=== PATIENT | male | born 2000 | race Caucasian/White ===

== ENCOUNTER 2020-01-20 17:36 | Outpatient (REF) | payer MEDICAID, SELFPAY | END 2020-01-20 17:37 | disposition home or self-care (01) | LOC: HO.LAB 17:36 | PROVIDERS: Visit Provider Internal Medicine | DX: Z20.828 Contact with and (suspected) exposure to other viral communicable diseases (principal) | CPT/HCPCS: U0003 ==

== ENCOUNTER 2022-04-08 18:27 | Emergency (ER) | payer MEDICAID, SELFPAY ==
--- NOTE | 2022-04-08 18:43 | ED.URI ---
HPI - URI/Sore Throat General Chief Complaint: General Medical Stated Complaint: covid testing Time Seen by Provider: 04/08/22 18:44 Source: patient Mode of arrival: ambulatory Limitations: no limitations History of Present Illness HPI Narrative: Patient is a 22-year-old male presents emergency department for evaluation of upper respiratory symptoms. He states a couple of hours ago he began feeling unwell. States that he Took an at home COVID-19 test which was positive. States his work is requiring testing from doctor regarding positive status. Complaining of fatigue, cough, congestion. States vaccinated for COVID-19 x2. Related Data Allergies Allergy/AdvReac Type Severity Reaction Status Date / Time No Known Allergies Allergy Verified 04/08/22 18:44 [No Known Allergies*] Review of Systems Review of Systems: Constitutional: No fever. No chills. No weakness. Positive fatigue. ENT/ Mouth: No Ear Pain, positive Nasal Congestion, positive sore throat, No Rhinorrhea, No Swallowing Difficulty Skin: No rash or itching. Cardiovascular: No chest pain. No palpitations. Respiratory: No shortness of breath. Positive cough. No sputum production. Gastrointestinal: No nausea. No vomiting. No diarrhea. No abdominal pain. Genitourinary: No burning micturition. No urinary frequency. Neurologic: No headache. No dizziness. No syncope. No numbness or tingling in the extremities. Musculoskeletal: No muscle pain. No back pain. No joint pain or stiffness. Yes all other systems are reviewed and are negative PMFSH Past Medical History Attestation statement: The following information was validated with the patient. Source: old records reviewed Social History Social History Advance Directives: No Advance Directives Information Provided: No Physical Exam Vital Signs: Vital Signs: Last Vital Signs Temp 98.5 F 04/08/22 18:44 Pulse 89 04/08/22 18:44 Resp 16 04/08/22 18:44 BP 152/98 H 04/08/22 18:44 Pulse Ox 96 04/08/22 18:44 O2 Del Method 04/08/22 18:44 BMI result Body Mass Index 33.9 Appearance: Alert.?Oriented to person, place and time. No acute distress.?Normal affect. Eyes: Pupils equal, round and reactive to light.? ENT: TM normal bilaterally. Pharynx normal.?? Neck: Normal inspection.? Neck supple.??No cervical adenopathy CVS: Heart sounds normal. Normal heart rate and rhythm.? Pulses normal.?? Respiratory: No respiratory distress.? Lung sounds clear to auscultation bilaterally?? Abdomen: Soft and non-tender. Normoactive bowel sounds. Skin: Skin warm and dry.? Normal skin color.? ? Extremities: No lower extremity edema.? Neuro: Moves all extremities spontaneously. Sensation intact bilaterally. No motor deficits. Ambulates with normal steady gait. Medical Decision Making Medical Decision Making [facility] Narrative: Patient is a 22-year-old male with no reported past medical history, presenting for evaluation of upper respiratory symptoms. COVID-19 testing is positive. Discussed Paxlovid, EUA, indications for use, and potential side effects, patient declines. Provided with a return to work note. At this time history and physical exam not consistent with ACS/PE/pneumonia. Well-appearing, nontoxic, afebrile, no tachycardia or tachypnea/hypoxia. Speaking clear full sentences, ambulatory with steady gait. Discussed conservative treatment including rest, hydration, Tylenol/ibuprofen as needed for fever and body aches, saline nasal spray, humidifier, [id number] cold medication. Advised to follow-up with primary care provider as needed, discussed reasons to return back to the emergency department. All questions were answered. Patient discharged home in stable condition. Provided with a return to work note. Differential Diagnosis Differential Diagnoses: The differential diagnosis associated with the presentation includes (As noted above) Lab Data [facility] Lab Attestation statement: I reviewed the patient's lab results. Labs: Lab Results 04/08/22 Range/Units 19:46 COVID-19 (DEBORAH) Positive A (Negative) COVID-19 Clin Com See Note Prescription Management I considered prescription management with: Antiviral (As noted above) Discharge Plan Discharge Clinical Impression: COVID-19 Patient Disposition: Home, Self-Care Instructions: COVID-19 (Coronavirus Disease 2019) (ED) Additional Instructions: Your COVID-19 test was positive today. Please be sure to rest, drink plenty of fluids. You can take ibuprofen 200 mg, 3 tablets (600mg) every 6-8 hours as needed for pain, in addition to Tylenol 500 mg, 2 tablets (1,000mg) every 4-6 hours as needed for pain, but not to exceed 3 doses daily (3,000mg).? According to the CDC you can end isolation and return to work or school on 04/14/2022, with strict mask wearing for an additional 5 days; ??Given you meet the following ?- at least 24 hours without fever without the use of fever-reducing medications (tylenol or ibuprofen) ?- improvement in symptoms ?- at least 5 days have passed since symptoms first appeared ? Stand Alone Forms: Work/School Release
[2022-04-08 18:44] VITALS: BP 152/98; PULSE 89; RESP 16; TEMP 36.9; O2SAT 96; BMI 33.9
[2022-04-08 20:01] LABS: COVID-19 Test Positive (Negative); IDNOW Serial# 6674DD1D
[2022-04-08 20:20] VITALS: BP 145/72; PULSE 85; RESP 18; TEMP 36.9; O2SAT 97
== END 2022-04-08 20:20 | disposition home or self-care (01) ==
PROVIDERS: Nurse Practitioner Family; Emergency Provider Internal Medicine
DX: U07.1 COVID-19 (principal)
CPT/HCPCS: 87635; 99283

== ENCOUNTER 2025-02-01 07:52 | Emergency (ER) | payer OTHER, SELFPAY ==
--- OUTSIDE RECORDS SUMMARY | 2016-02-15 07:45 | XMS_ITS | Continuity of Care Document ---
Author Organization Eddie Shannon [facility] Address [address] [facility] [facility] [address] [place] [address] Phone Care Team Providers Care Director Corporate Security Name Role Phone Nayeli Steward RDH Unavailable [...] VISIT, EST, AGE 12-17 OFFICE/OUTPATIENT VISIT, EST [place]-Porcelain/Ceramic Substrate PFM TEMPORARY CROWN Prefabricated Post And Core In Addition To [place] PFM/PREP AND FINAL IMP PORCELAIN FUSED TO BASE/IMP Anterior (Excluding Final Faith) J RCT IN PROCESS Periodic Oral Evaluation-Established Pat ient Bitewings-Four Films Prophylaxis-Adult Oral Hygiene Instructions Intraoral-Periapical First Film 014 Topical Application Of Fluoride 014 Periodic Oral Evaluation-Established Pat ient Bitewings-Four Films Prophylaxis-Adult Oral Hygiene Instructions Topical Application Of Fluoride 014 Psychotherapy 45 Min (38-52 Min) 2012 Interactive Complexity Psychotherapy 45 Min (38-52 Min) 2012 Interactive Complexity OCULAR CARE AIDE Psychotherapy 45 Min (38-52 Min) 2012 OCULAR CARE AIDE OCULAR CARE AIDE RCT IN PROCESS Psychotherapy 45 Min (38-52 Min) 2012 Dental Kept Appt No Charge OCULAR CARE AIDE Dental Kept Appt No Charge DEVELOPMENTAL TEST, ROPER Advance Directives Directive Yes / No Effective Date File Name No Information Encounters Encounter Description Practice Location Reason(s) For Visit Diagnoses Date Provider Providers Copied on Encounter Eddie Chu [facility], [address] [facility], [place], [place], [id number], [place] tel:[phone] [facility] Encounter for dental exam and cleaning w/o abnormal findings 6 Aldindiachristineomari Tyler. [address] [place], [place], [id number]. tel:[phone] OFFICE/OUTPATI ENT VISIT, EST [facility], [address] [facility] [address], [place], [place], [id number], [place] tel:[phone] [facility] ankle pain (chief complaint) Sprain of left ankle, unspecified ligament, initial encounter 0- 6 No Information [facility], [address] [facility],[address], [place], [place], [id number], [place] tel:[phone] [facility] Encounter for dental exam and cleaning w/o abnormal findings 5 Sarahstewart Bull. [address] [place], [place], [id number]. tel:[phone] [facility], [address] [facility],[address], [place], [place], [id number], [place] tel:[phone] [facility] DENTAL EXAMINATION 5 Nichelle Tyler. [address] [place] [address], [id number]. tel:[phone] PREV VISIT, EST, AGE 12-17 [facility], [address] [facility] [address], [place], [place], [address], [place] tel:[phone] [facility] Well Child (chief complaint) acne (chief complaint) Well child checkAcne Aug- 5 No Information [facility], [address] [facility] [address], [place], [place], [id number], [place] tel:[phone] [facility] Dental examination Jun- 5 Sarah Jorgito. [address] [place], [place], [id number]. tel:[phone] [facility], [address] [facility],[address], [place], [place], [address], [place] tel:[phone] [facility] Dental examination Mar-0 6 5 Sarah Bull. [address] [place] [address], [id number]. tel:[phone] [facility], [address] [facility] [address], [place], [place], [address], [place] tel:[phone] [facility] Dental examination Feb-0 8 4 Sarahstewart Bull. [address] [place] [address], [id number]. tel:[phone] [facility], [address] [facility] [address], [place], [id number], [place] tel:[phone] [facility] Dental examination 2 4 Nichelle Tyler. [address] [place] [address], [id number]. tel:[phone] [facility], [address] [facility] [address], [place], [place], [address], [place] tel:[phone] [facility] Dental examination 0 4 Nichelle Tyler. [address] [place] [address], [id number]. tel:[phone] Psychotherapy 45 Min (38-52 Min) [facility], [address] [facility] [address], [place], [place], [address], [place] tel:[phone] [facility] No Information 3 No Information Psychotherapy 45 Min (38-52 Min) [facility], [address] [facility], [place], [place], [id number], [place] tel:[phone] [facility] No Information 0 3 No Information [facility], [address] [facility], [place], [place], [address], [place] tel:[phone] [facility] 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 . Psychotherapy 45 Min (38-52 Min) [facility], [address] [facility] [address], [place], [place], [address], [place] tel:[phone] [facility] No Information 3 No Information [facility], [address] 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 . [facility], [address] [facility] [address], [place], [place], [address], [place] tel:[phone] [facility] Dental examination 3 Nadimpalli Parvathi. [address] [place], [place], [id number], [place]. tel:[phone] Psychotherapy 45 Min (38-52 Min) [facility], [address] [facility] [address], [place], [place], [address], [place] tel:[phone] [facility] Oppositional defiant disorderUnsp ecified episodic mood disorder 3 No Information [facility], [address] [facility] [address], [place], [place], [id number], [place] tel:[phone] [facility] No Information 2 Nadimpalli Parvathi. [address] [place], [place], [id number], [place]. tel:[phone] [facility], [address] [facility] [address], [place], [place], [address], [place] tel:[phone] [facility] No Information 2 Fire Engine Pump Operator. . [facility], [address] [facility] [address], [place], [place], [address], [place] tel:[phone] [facility] No Information 2 Nichelle Tyler. [address] [facility], [place], [place], [id number]. tel:[phone] sigrid [facility], [address] [facility] [address], [place], [place], [address], [place] tel:[phone] [facility] Eating disorder, unspecifiedA djustment disorder with anxiety 2 No Information [facility], [address] [facility] [address], [place], [place], [id number], [place] tel:[phone] [facility] Counseling for parent-child problem, unspecified 1 No Information sigrid [facility], [address] [facility] [address], [place], [place], [address], [place] tel:[phone] [facility] Unspecified adjustment reaction 1 No Information sigrid [facility], [address] [facility] [address], [place], [place], [address], [place] tel:[phone] [facility] Generalized anxiety disorderRout ine infant or child health check 1 No Information [facility], [address] [facility] [address], [place], [place], [address], [place] tel:[phone] [facility] No Information 1 No Information Family History Family Member Type Diagnosis Age At Onset No Information Immunizations Vaccine Date Status Comments HPV 9 administered Source: [facility] unization Record Varicella administered Note: Fredis [...] e: [facility] ; Source: Other Registry [id number] administered Note: [facility] ; Source: Other Registry [id number] administered Note: [facility] ; Source: Other Registry [id number] administered Note: [facility] ; Source: Other Provider Hep B (ped/adol, 3 dose) administered Not e: [facility] ; Source: Other Registry Hep B (ped/adol, 3 dose) administered Not e: [facility] ; Source: Other Provider Payers Payer name Insurance type Covered constitution party ID Nino brock(s) [facility] [id number] Social History Type Description Quantity Date Captured [...] application . Due on due Goal HPV (2nd). Due on 5 due Goal HPV (1st) due Goal HPV (3rd). Due on 5 due Goal Tobacco Usage/Advice to Quit . Due on due Goal Flouride Varnish. Due on Jan due Goal Hematocrit. Due on 16 due [...]
[2025-02-01 07:55] VITALS: BP 166/98; PULSE 88; RESP 16; TEMP 36.2; O2SAT 98; BMI 30.5
[2025-02-01] MEDS: Fluorescein Sodium STRIP 1 STRIP EYE-BOTH (08:56)
--- NOTE | 2025-02-01 08:56 | ED.EYEPROB ---
HPI - Eye Problem General Chief complaint: Eye Problems Stated complaint: Eye Issues Irritation Time Seen by Provider: 02/01/25 08:46 Source: patient Mode of arrival: ambulatory Limitations: no limitations History of Present Illness ED Provider: HPI Narrative: 25-year-old presenting with right eye irritation he woke up with this, no trauma, feels like there is something in his eye, no fevers or chills slight blurry vision Related Data Allergies Allergy/AdvReac Type Severity Reaction Status Date / Time No Known Allergies (No Known Allergy Verified 02/01/25 07:57 Allergies*) Review of Systems Constitutional: Constitutional: Reports as per [facility] Social History Social History Advance Directives: No Advance Directives Information Provided: Yes Do you have a plan to hurt others: No Plan Physical Exam Exam: Exam: Ophthalmoscopic exam with pupils 3 mm reactive, normal vasculature that was visible Fluorescein stain Wood's lamp did not reveal any dendrites, foreign bodies, Car sign is negative, no abrasions No periorbital edema noted Vital Signs: Vital Signs: Last Vital Signs Temp 97.2 F 02/01/25 07:55 Pulse 88 02/01/25 07:55 Resp 16 02/01/25 07:55 BP 166/98 H 02/01/25 07:55 Pulse Ox 98 02/01/25 07:55 O2 Del Method Room Air 02/01/25 07:55 BMI result Body Mass Index 30.5 Medications Administered Discontinued Medications Generic Name Dose Route Start Last Admin Trade Name Freq PRN Reason Stop Dose Admin Fluorescein Sodium 1 strip 02/01/25 08:47 02/01/25 08:56 Fluorescein Sodium Strip EYE-BOTH 02/01/25 08:48 1 strip ONCE ONE Administration Medical Decision Making Medical Decision Making [facility] Narrative: 9:34 AM 02/01/2025 (Dr. Joseluis Burr): Physical examination fluorescein exam ophthalmoscopic examination without any foreign bodies, flare cells to suspect uveitis anteriorly, no evidence of corneal abrasions, no trauma no swelling around the eye to suspect preseptal or septal cellulitis Differential Diagnosis Differential Diagnoses: The differential diagnosis associated with the presentation includes (See above) Discharge Plan Discharge Clinical Impression: Eye irritation Patient Disposition: Home, Self-Care Instructions: Eye Pain (ED) Additional Instructions: Eye examination without any foreign bodies, without cuts to the cornea, the eye appeared to me irritated from the picture showed me, you can use ketotifen no more than 3 times a day to help with the irritation, do not rub the eye, discharge of pus from the eye, swelling around the eye that is getting worse, any worsening symptoms come back to the ER, you can try ibuprofen 400 mg if you have discomfort in the eye but please make sure do not rub the eye Print Language: Upper Sorbian
[2025-02-01 09:39] VITALS: BP 166/98; PULSE 88; RESP 16; TEMP 36.2; O2SAT 98
[2025-02-01] MEDS: Ketotifen Fumarate 0.025% Oph 5 ML DRPBTL 1 DROP EYE-BOTH (10:47)
== END 2025-02-01 10:47 | disposition home or self-care (01) ==
PROVIDERS: Emergency Provider Emergency Medicine; PCP Internal Medicine Endocrinology, Diabetes & Metabolism
DX: H57.9 Unspecified disorder of eye and adnexa (principal)
CPT/HCPCS: 99283; 99284

== ENCOUNTER 2025-03-12 01:36 | Emergency (ER) | payer OTHER, SELFPAY ==
--- OUTSIDE RECORDS SUMMARY | 2016-02-15 07:45 | XMS_ITS | Continuity of Care Document ---
Author Organization Eddie Shannon [facility] Address [address] [place] [address] Phone Care Team Providers Care Insurance Service Representative Name Role Phone Nayeli Steward RDH Unavailable Unavailab le Allergies, Adverse Reactions, Alerts Substance Reaction Status Criticality No Known Allergies Active No Inform ation Medications Medication Instructions Dosage Effective Dates (start - stop) Status Comments ibuprofen 600 mg tablet take 1 tablet by oral route 3 times every day with food 600 MG - Active benzoyl peroxide 5 % topical cleanser wash by topical route 2 times every day the affected area(s) - Active tretinoin 0.025 % topical cream apply by topical route every day to the affected area(s) - Active penicillin V potassium 250 mg/5 mL Oral Solution take 5 milliliter (250MG) by oral route every 8 hours 250 MG - Active Procedures Procedure Date Periodic Oral Evaluation-Established Pat ient Bitewings-Four Films Prophylaxis-Adult Oral Hygiene Instructions Topical Application Of Fluoride 016 Treatment Plan Complete Caries Low Risk 1st Molar Cannot Be Sealed OFFICE/OUTPATIENT VISIT, EST Resin-Based Composite-One Surface, Poste rior Treatment Plan Complete Periodic Oral Evaluation-Established Pat ient Prophylaxis-Adult Oral Hygiene Instructions Topical Application Of Fluoride 015 IMMUNIZATION ADMIN HPV Vaccine Type 6,11,16,18,31,33,45,52, 58 PREV VISIT, EST, AGE 12-17 OFFICE/OUTPATIENT VISIT, EST [place]-Porcelain/Ceramic Substrate PFM TEMPORARY CROWN Prefabricated Post And Core In Addition To [place] PFM/PREP AND FINAL IMP PORCELAIN FUSED TO BASE/IMP Anterior (Excluding Final Yazidism) J RCT IN PROCESS Periodic Oral Evaluation-Established Pat ient Bitewings-Four Films Prophylaxis-Adult Oral Hygiene Instructions Intraoral-Periapical First Film 014 Topical Application Of Fluoride 014 Periodic Oral Evaluation-Established Pat ient Bitewings-Four Films Prophylaxis-Adult Oral Hygiene Instructions Topical Application Of Fluoride 014 Psychotherapy 45 Min (38-52 Min) 2012 Interactive Complexity Psychotherapy 45 Min (38-52 Min) 2012 Interactive Complexity CARD PUNCHER Psychotherapy 45 Min (38-52 Min) 2012 CARD PUNCHER CARD PUNCHER RCT IN PROCESS Psychotherapy 45 Min (38-52 Min) 2012 Dental Kept Appt No Charge CARD PUNCHER Dental Kept Appt No Charge DEVELOPMENTAL TEST, ROPER Advance Directives Directive Yes / No Effective Date File Name No Information Encounters Encounter Description Practice Location Reason(s) For Visit Diagnoses Date Provider Providers Copied on Encounter Eddie Chu [facility], [address] [facility], [place], [place], [id number], [place] tel:[phone] [facility] Encounter for dental exam and cleaning w/o abnormal findings 6 Aldindiachristineomari Tyler. [address] [place], [place], [id number]. tel:[phone] OFFICE/OUTPATI ENT VISIT, EST [facility], [address] [facility] [address], [place], [place], [id number], [place] tel:[phone] [facility] ankle pain (chief complaint) Sprain of left ankle, unspecified ligament, initial encounter 0- 6 No Information [facility], [address] [facility],[address], [place], [place], [id number], [place] tel:[phone] [facility] Encounter for dental exam and cleaning w/o abnormal findings 5 Sarahstewart Bull. [address] [place], [place], [id number]. tel:[phone] [facility], [address] [facility],[address], [place], [place], [id number], [place] tel:[phone] [facility] DENTAL EXAMINATION 5 Nichelle Tyler. [address] [place] [address], [id number]. tel:[phone] PREV VISIT, EST, AGE 12-17 [facility], [address] [facility] [address], [place], [place], [id number], [place] tel:[phone] [facility] Well Child (chief complaint) acne (chief complaint) Well child checkAcne Aug- 5 No Information [facility], [address] [facility] [address], [place], [place], [id number], [place] tel:[phone] [facility] Dental examination Jun- 5 Sarah Jorgito. [address] [place], [place], [id number]. tel:[phone] [facility], [address] [facility] [address], [place], [place], [id number], [place] tel:[phone] [facility] Dental examination Mar-0 6 5 Sarah Bull. [address] [place] [address], [id number]. tel:[phone] [facility], [address] [facility] [address], [place], [place], [id number], [place] tel:[phone] [facility] Dental examination Feb-0 8 4 Sarahstewart Bull. [address] [place] [address], [id number]. tel:[phone] [facility], [address] [facility] [address], [place], [id number], [place] tel:[phone] [facility] Dental examination 2 4 Nichelle Tyler. [address] [place] [address], [id number]. tel:[phone] [facility], [address] [facility] [address], [place], [place], [id number], [place] tel:[phone] [facility] Dental examination 0 4 Nichelle Tyler. [address] [place] [address], [id number]. tel:[phone] Psychotherapy 45 Min (38-52 Min) [facility], [address] [facility] [address], [place], [place], [id number], [place] tel:[phone] [facility] No Information 3 No Information Psychotherapy 45 Min (38-52 Min) [facility], [address] [facility], [place], [place], [id number], [place] tel:[phone] [facility] No Information 0 3 No Information [facility], [address] [facility],[address], [place], [place], [id number], [place] tel:[phone] [facility] No Information 3 [employer]. . Psychotherapy 45 Min (38-52 Min) [facility], [address] [facility] [address], [place], [place], [address], [place] tel:[phone] [facility] No Information 3 No Information [facility], [address] [facility] [facility] [address], [place], [place], [id number], [place] tel:[phone] [facility] No Information 3 [employer]. . [facility], [address] [facility] [facility] [address], [place], [place], [id number], [place] tel:[phone] [facility] Dental examination 3 Nadimpalli Parvathi. [address] [place], [place], [id number], [place]. tel:[phone] Psychotherapy 45 Min (38-52 Min) [facility], [address] [facility] [address], [place], [place], [address], [place] tel:[phone] [facility] Oppositional defiant disorderUnsp ecified episodic mood disorder 3 No Information [facility], [address] [facility] [address], [place], [place], [id number], [place] tel:[phone] [facility] No Information 2 Nadimpalli Parvathi. [address] [place], [place], [id number], [place]. tel:[phone] [facility], [address] [facility] [address], [place], [place], [id number], [place] tel:[phone] [facility] [employer] [employer] No Information 2 [employer]. . [facility], [address] [facility] [facility] [address], [place], [place], [id number], [place] tel:[phone] [facility] No Information 2 Nichelle Tyler. [address] [facility], [place], [place], [id number]. tel:[phone] sigrid [facility], [address] [facility] [address], [place], [place], [id number], [place] tel:[phone] [facility] Eating disorder, unspecifiedA djustment disorder with anxiety 2 No Information [facility], [address] [facility] [address], [place], [place], [id number], [place] tel:[phone] [facility] Counseling for parent-child problem, unspecified 1 No Information sigrid [facility], [address] [facility] [address], [place], [place], [id number], [place] tel:[phone] [facility] Unspecified adjustment reaction 1 No Information sigrid [facility], [address] [facility] [address], [place], [place], [id number], [place] tel:[phone] [facility] Generalized anxiety disorderRout ine infant or child health check 1 No Information [facility], [address] [facility] [address], [place], [place], [address], [place] tel:[phone] [facility] No Information 1 No Information Family History Family Member Type Diagnosis Age At Onset No Information Immunizations Vaccine Date Status Comments HPV 9 administered Source: [facility] unization Record Varicella administered Note: [facility] ; Source: Other Registry Tdap administered Note: [facility] ; Source: Other Registry Meningococcal MCV4O administered Note: [facility] ; Source: Other Registry DTaP administered Note: [facility] ; Source: Other Provider Polio, Inactive administered Note: [facility] ; Source: Other Registry MMR administered Note: [facility] ; Source: Other Registry DTaP administered Note: [facility] ; Source: Other Registry Varicella administered Note: [facility] ; Source: Other Registry MMR administered Note: [facility] ; Source: Other Registry Hep B (ped/adol, 3 dose) administered Not e: [facility] ; Source: Other Registry [id number] administered Note: [facility] ; Source: Other Registry [id number] administered Note: [facility] ; Source: Other Registry [id number] administered Note: [facility] ; Source: Other Provider Hep B (ped/adol, 3 dose) administered Not e: [facility] ; Source: Other Registry Hep B (ped/adol, 3 dose) administered Not e: [facility] ; Source: Other Provider Payers Payer name Insurance type Covered libertarian ID Nino brock(s) [facility] [id number] Social History Type Description Quantity Date Captured Comments Sex Male Smoking Status No Information Chief Complaint And Reason For Visit No Information Reason For Referral Reason For Referral No Information Plan Of Treatment Date Type Action Status Goal Unhealthy drug use screening . Due on due Goal Document SOGI Information. D ue on due Goal Fluoride varnish application . Due on due Goal Influenza vaccine. Due on due Goal APE. Due on due Goal HPV (1st) due Goal HPV (3rd). Due on due Goal HPV (2nd). Due on due Goal Diabetes Screening. Due on N due Goal Tdap. Due on due Goal Fluoride varnish application . Due on due Goal HPV (1st) due Goal HPV (2nd). Due on due Goal HPV (3rd). Due on 5 due Goal Flouride Varnish. Due on Jan due Goal Tobacco Usage/Advice to Quit . Due on due Goal Hematocrit. Due on 16 due Goal Hearing screen (10-21 yr). D ue on due Goal APE. Due on due Goal Influenza vaccine. Due on due Goal Tdap. Due on due History Of Present Illness Encounter Date Complaint History Of Prese nt Illness ankle pain Onset: 1 week ag o. It occurs constantly and is fluctuating. Location: ankle. There is no radiation. The pain is aching. Context: twisted ankle while running. The pain is aggravated by movement, walking and standing. The pain is relieved by rest. Associated symptoms include joint tenderness. Pertinent negatives include crepitus, decreased mobility, difficulty initiating sleep, joint instability, limping, locking, nocturnal pain, numbness, popping and tingling in the legs. Well Child Pt states last p ediatric visit was with [facility]. [facility] about 6 yrs ago. Denies any significant hx. acne The problem is m ild. Area(s) affected include the face. Additional information: Pt asks about facial creams for acne. Hasn't tried anything previously. Functional Status Date Functional Assessmen t No Information Instructions Date Instruction Additional Infor mation No Information Assessments Type Assessment Date No Information Patient Care Teams Name Effective Dates (start - stop) Status Members No Information
--- NOTE | 2025-03-12 | ECG_ITS ---
Test Reason : PALPATATIONS Blood Pressure : */* mmHG Vent. Rate : 98 BPM Atrial Rate : 98 BPM P-R Int : 146 ms QRS Dur : 80 ms QT Int : 326 ms P-R-T Axes : 41 7 24 degrees QTcB Int : 416 ms Normal sinus rhythm Minimal voltage criteria for LVH, may be normal variant ( R in aVL ) Borderline ECG When compared with ECG of 31-Oct-2015 03:12, Vent. rate has increased by 44 bpm Referred By: Generic ED Physician Electronically Signed By: CLEMENT VALLES MD
[2025-03-12 01:39] VITALS: BP 173/99; PULSE 100; RESP 15; TEMP 36.8; O2SAT 100; BMI 31.2
[2025-03-12 02:34] VITALS: BP 167/98; PULSE 98; RESP 18; O2SAT 99
--- OUTSIDE RECORDS SUMMARY | 2025-03-12 02:46 | XMS_ITS | Continuity of Care Document ---
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 ETOH Use Denies alcohol use Tobacco Use Start: Unknown Patient has neve r smoked Recreational Drug Use Denies Drug Use Smoking Status Reviewed: 09/15/24 Patient has n ever smoked Exercise Type/Frequency Exercises regular ly Gym 3-4 x weekly, weight lifting, cardio Allergies and adverse reactions Description No Known Drug Allergies Medications Description No Active Medications Vital Signs Date Vital Result Comment 09/15/2024 2:31pm BP Systolic 138 mmHg BP Diastolic 88 mmHg Heart Rate 100 /min Height 67 inches 5'7 Weight 191.00 lb BMI (Body Mass Index) 29.9 kg/m2 Procedures Date Code Description Status 12/22/2024 NSHOWOFF No Show Office Visit Complet ed Medical Devices Description No Information Available Encounters Type Date Location Provider Dx Diagnosis Office Visit 09/15/2024 2:45p Main Office Katie Key CNP R03.0 Elevated blood-pressure reading, w/o diagnosis of htn 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 Z68.29 Body mass index [BMI ] 29.0-29.9, adult Z59.71 Insufficient health insurance coverage Assessments Date Code Description Provider 09/15/2024 R03.0 Elevated blood-p ressure reading, without diagnosis of hypertension Katie Key CNP 09/15/2024 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
[2025-03-12 03:46] LABS: Resp Syncy Virus RNA Qual PCR NEGATIVE (Negative); SARS COV2 PCR INHOUSE NEGATIVE (Negative)
--- NOTE | 2025-03-12 04:34 | ED.GENADULT ---
HPI - General Adult General Chief complaint: General Medical Stated complaint: not feeling well Time Seen by Provider: 03/12/25 02:35 Source: patient Limitations: no limitations History of Present Illness ED Provider: Cristina Ford PA-C HPI narrative: 25-year-old male presents with dizziness and palpitations since early evening. Patient states he took 100 mg of Viagra prior to the onset of his symptoms. Patient also states he has been having some viral symptoms over the past 2-3 days. Associated nasal congestion, sore throat dry cough. No known fever. Related Data Allergies Allergy/AdvReac Type Severity Reaction Status Date / Time No Known Allergies (No Known Allergy Verified 03/12/25 01:42 Allergies*) Review of Systems Review of Systems: Yes all other systems are reviewed and are negative Constitutional: Constitutional: Denies fatigue, Denies fever(s) and Denies headache(s) ENT: Reports dizziness, Denies headache(s) and Reports sore throat Cardiovascular: Cardiovascular: Denies chest pain, Reports palpitations and Denies dyspnea Respiratory: Respiratory: Reports cough, Denies dyspnea and Denies wheezing Gastrointestinal: Gastrointestinal: Denies nausea and Denies vomiting Musculoskeletal: Musculoskeletal: Denies myalgias Neurologic: Reports dizziness and Denies headache(s) Endocrine: Endocrine: Denies fatigue and Reports palpitations Allergic/Immunologic: Allergic/Immunologic: Denies wheezing PMFSH Past Medical History Attestation statement: The following information was validated with the patient. Social History Social History Smoked in Last 30 Days: No Use of substances other than those prescribed or required for medical reasons: No Advance Directives: No Advance Directives Information Provided: Yes Do you have a plan to hurt others: No Plan Physical Exam ED Vital Signs: Vital Signs - 24 hr 03/12/25 01:39 03/12/25 02:34 03/12/25 04:42 Temperature 98.2 F 98.2 F Pulse Rate 100 98 90 Respiratory Rate 15 18 16 Blood Pressure 173/99 H 167/98 H 156/92 H Pulse Oximetry 100 99 97 Oxygen Delivery Method Room Air Room Air Room Air 03/12/25 04:48 Temperature 98.2 F Pulse Rate 90 Respiratory Rate 16 Blood Pressure 156/92 H Pulse Oximetry 97 Oxygen Delivery Method Room Air BMI result Body Mass Index 31.2 Const Other: Alert Orientation/consciousness: patient oriented x3 Resp Effort & Inspection: normal respiratory effort Cardio Other: Normal peripheral perfusion Skin Other: Warm dry no rash Neuro General: patient oriented x3, gait normal, no focal motor deficits and CN's II-XI intact bilaterally Psych Other: Cooperative Medical Decision Making Medical Decision Making [facility] Narrative: 25-year-old male presents with dizziness and palpitations since early evening. Patient states he took 100 mg of Viagra prior to the onset of his symptoms. Patient also states he has been having some viral symptoms over the past 2-3 days. Associated nasal congestion, sore throat dry cough. No known fever. No chronic issues History: Per patient I have considered the following differential diagnoses: Viral syndrome, anemia, dehydration, electrolyte abnormality, medication reaction Plan: Adding on a viral panel, he could have the flu, it has been prevalent within our community. Most likely, this is a medication reaction from the Viagra that he took. I have independently reviewed the following tests: Viral panel is negative Differential Diagnosis Differential Diagnoses: The differential diagnosis associated with the presentation includes See [facility] Admission/Observation Consideration of admission/observation: Escalation of care including admission/observation considered Not applicable Lab Data [facility] Lab Attestation statement: I reviewed the patient's lab results. Labs: Lab Results 03/12/25 Range/Units 03:05 Influenza Type A (PCR) NEGATIVE (Negative) Influenza Type B (PCR) NEGATIVE (Negative) RSV RNA Qual (PCR) NEGATIVE (Negative) SARS-CoV-2 RNA (RT-PCR) NEGATIVE (Negative) Discharge Plan Discharge Clinical Impression: Dizziness Patient Disposition: Home, Self-Care Instructions: Dizziness (ED) Additional Instructions: You were tested for influenza RSV and COVID, the viral panel was negative. I do feel your symptoms are secondary to the high-dose Viagra you chose to use overnight. This is 1 of the side-effects. Stand Alone Forms: Work/School Release Interventions: ED Discharge Assessment Last Done: 03/12/25 04:48 Discharge Date/Time: 03/12/25 04:48 Print Language: Indonesian
[2025-03-12 04:42] VITALS: BP 156/92; PULSE 90; RESP 16; TEMP 36.8; O2SAT 97
[2025-03-12 04:48] VITALS: BP 156/92; PULSE 90; RESP 16; TEMP 36.8; O2SAT 97
== END 2025-03-12 04:48 | disposition home or self-care (01) ==
PROVIDERS: Physician Assistant Medical; Emergency Provider Emergency Medicine
DX: R42 Dizziness and giddiness (principal); R09.81 Nasal congestion; J02.9 Acute pharyngitis, unspecified; Z03.818 Encounter for observation for suspected exposure to other biological agents ruled out; R05.9 Cough, unspecified
CPT/HCPCS: 87637; 93005; 99284

== ENCOUNTER → 2025-03-12 01:51 | Outpatient (BNV) | payer OTHER, SELFPAY | PROVIDERS: Emergency Provider Emergency Medicine; Visit Provider Internal Medicine Cardiovascular Disease | DX: R00.2 Palpitations (principal) | CPT/HCPCS: 93010 ==